=== PATIENT | female | born 1960 | race Asian ===

== ENCOUNTER 2023-12-17 10:21 | Emergency (ER) | payer OTHER ==
[~2023-12-17] VITALS: Ht 160 cm; Wt 56.8 kg
[2023-12-17 10:27] VITALS: BP 143/86; PULSE 71; RESP 16; TEMP 97.8
[2023-12-17] MEDS: LIDOCAINE 5% TRANSDERMAL PATCH TD ONE (11:54)
[2023-12-17] MEDS: KETOROLAC TROMETHAMINE 30 MG/ML VIAL IM ONE (11:54)
[2023-12-17 12:48] LABS: APPEARANCE,URINE CLEAR (CLEAR); BILIRUBIN,URINE NEGATIVE (NEGATIVE); COLOR,URINE COLORLESS (YELLOW); GLUCOSE, URINE (UA) NEGATIVE (NEGATIVE); KETONES,URINE NEGATIVE (NEGATIVE); LEUKOCYTE ESTERASE ,URINE NEGATIVE (NEGATIVE); NITRATE,URINE NEGATIVE (NEGATIVE); OCCULT BLOOD,URINE NEGATIVE (NEGATIVE); PROTEIN,URINE NEGATIVE (NEGATIVE); SPECIFIC GRAVITIY, URINE 1.003 (1.003-1.030); UROBILINOGEN,URINE <=1.0 mg/dL (<=1.0)
[2023-12-17] MEDS ORDERED: TRAM50TA5 PO (13:29)
[2023-12-17] MEDS ORDERED: LIDO700A15 TP (13:29)
== END 2023-12-17 13:40 | disposition home or self-care (01) ==
LOC: EMS 10:21
DX: M54.50 Low back pain, unspecified (principal)
CPT/HCPCS: 99284; 81003; 72100; 96372; J1885

== ENCOUNTER 2025-04-06 19:28 | Emergency (ER) | payer OTHER ==
[~2025-04-06] VITALS: Ht 160 cm; Wt 57.0 kg
[~2025-04-06 19:28] MED LIST: LIDO-57 TP; TRAM50TA5 PO
[2025-04-06 19:42] VITALS: TEMP 98
[2025-04-06] MEDS: BACITRACIN 0.9 GM PACKET OINTMENT TP ONE (20:14)
[2025-04-06] MEDS: ACETAMINOPHEN 325 MG TABLET PO ONE (20:14)
[2025-04-06 21:00] VITALS: BP 133/80; PULSE 80; RESP 16; O2SAT 97
== END 2025-04-06 21:36 | disposition home or self-care (01) ==
LOC: EMS 19:28
DX: S00.81XA Abrasion of other part of head, initial encounter (principal); S00.31XA Abrasion of nose, initial encounter; R41.82 Altered mental status, unspecified; E78.00 Pure hypercholesterolemia, unspecified; I10 Essential (primary) hypertension; Z79.899 Other long term (current) drug therapy; W18.39XA Other fall on same level, initial encounter; Y93.89 Activity, other specified; Y92.89 Other specified places as the place of occurrence of the external cause; Y99.8 Other external cause status
CPT/HCPCS: 70450; 99284